=== PATIENT | female | born 1935 | race Caucasian/White ===

== ENCOUNTER 2018-08-19 09:36 | Outpatient (CLI) | payer MEDICARE ==
--- NOTE | 2018-08-19 11:37 | RAD ---
CHEST 2 VIEWS: Date: 08/19/18 COMPARISON: 10/09/16. HISTORY: Dyspnea. FINDINGS: Stable cardiac silhouette. Chronic changes in the lung parenchyma. Stable hyperinflation. No pneumoth orax or acute osseous abnormalities. Remote mild compression fracture at T12 is stable. IMPRESSION: Chronic changes. POS: [facility]
== END 2018-08-19 09:37 | disposition home or self-care (01) ==
LOC: RAD 09:36
PROVIDERS: ATTEND Internal Medicine Critical Care Medicine
DX: R06.00 Dyspnea, unspecified (principal)
CPT/HCPCS: 71046

== ENCOUNTER 2018-10-12 10:30 | Outpatient (CLI) | payer MEDICARE ==
--- NOTE | 2018-10-12 11:26 | RAD ---
CHEST 2 VIEWS: HISTORY: Dyspnea. COMPARISON: Radiograph 08/19/2018. FINDINGS: Chronic scarring in the lung apices. There is also some chronic scarring in the lung bases. Lungs a re hyperinflated. There is a wedge compression fracture likely at T12. Cardiac silhouette and mediastinal contours are similar. Reverse S shaped scoliosis. IMPRESSION: No acute abnormality. POS: [facility]
== END 2018-10-12 10:31 | disposition home or self-care (01) ==
LOC: RAD 10:30
PROVIDERS: ATTEND Internal Medicine Critical Care Medicine
DX: R06.00 Dyspnea, unspecified (principal)
CPT/HCPCS: 71046

== ENCOUNTER 2021-02-06 10:19 | Outpatient (CLI) | payer MEDICARE, OTHER | END 2021-02-06 10:20 | disposition home or self-care (01) | LOC: BICCT 10:19 | PROVIDERS: ATTEND Internal Medicine Critical Care Medicine | DX: R91.1 Solitary pulmonary nodule (principal); J84.10 Pulmonary fibrosis, unspecified; J47.9 Bronchiectasis, uncomplicated; R91.8 Other nonspecific abnormal finding of lung field | CPT/HCPCS: 71250 ==